=== PATIENT | female | born 1985 ===

== ENCOUNTER 2016-11-07 20:56 | Emergency (ER) | payer OTHER ==
[2016-11-07 21:08] VITALS: BP 118/65; PULSE 79; RESP 18; TEMP 98; O2SAT 98
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
--- NOTE | 2016-11-08 12:56 | US ---
PROCEDURE: ultrasound HISTORY: 12 weeks r/o demise COMPARISON: None available. TECHNIQUE: None FINDINGS: LMP: 08/14/2016 Prior examinations from the current : None TECHNIQUE: Real-time 2D imaging, duplex and color Doppler. FINDINGS: Cardiac activity: Present Rate: 02/12/1928 BPM Measurements: [place] rump length: 5.35 cm Gestational age based on CRL 12 weeks Gestational age based on gestational sac measurement 11 weeks 3 days Gestational age derived from LMP: 12 weeks 1 day ERINN based on LMP: 05/21/2017 ERINN based on biometry: 05/24/2017 Gestational concordance documented Yolk sac identified Uterus: Unremarkable. No Cervical abnormalities: Negative examination for cervical dilatation or effacement. Closed cervix measures 4.18 cm Subchorionic hemorrhage: None ADNEXA: Right: 1.5 x 2.7 cm. Normal Doppler arterial waveform documented. Left: 1.1 x 2.3 cm. Normal Doppler arterial waveform documented Fluid in the cul-de-sac: None. IMPRESSION: 11 weeks 5 days live intrauterine gestation. Gestational concordance documented.
== END 2016-11-07 23:34 | disposition home or self-care (01) ==
LOC: H.ER 20:56
DX: M54.5 Low back pain (principal); S16.1XXA Strain of muscle, fascia and tendon at neck level, initial encounter; V43.52XA Car driver injured in collision with other type car in traffic accident, initial encounter; Y92.410 Unspecified street and highway as the place of occurrence of the external cause; Z33.1 Pregnant state, incidental

== ENCOUNTER → 2017-02-23 | Emergency (ER) | payer OTHER ==
--- NOTE | 2017-02-23 16:17 | OBHP ---
Datetime: 02/23/2017 16:12 IP Adm Impression: , intrauterine ; No Active Labor IP Admit Plan: Discharge home Admit Comment, IP Provider: The patient is a 31-year-old 2 para 1 last, last menstrual perio d 08/14/2016 estimated due date 05/21/2017 and estimated gestational age 27 weeks patient presents to labor and delivery complaining of decreased movement for the last 24 hours. Patient denies any vaginal bleeding any complications. Past medical history none Past surgical history none No known drug allergies Social history negative Review of systems patient denies headache chest pain shortness of breath palpitations nausea vomit ing diarrhea heat or cold intolerances bruisability Vital signs stable afebrile Physical exam see notes Intrauterine at 1227 weeks heart rate monitoring appropriate Patient reports movement when she was placed on the monitor NST Discharge home Abdomen - PN: Normal FHR - Baseline A Provider: 145 Gestation - Est Wks by US: 27.0 EGA AdmitDate IP: 27.4 IP Chief Complaint: Other NICHD Variability Prov Fetus A: Moderate 6-25bpm NICHD Accel Fetus A IP Provider: 10X10 FHR Category Provider Fetus A: Category I NICHD Decel Fetus A IP Provider: None
== END | disposition home or self-care (01) ==
LOC: H.EROB2 13:23
DX: O36.8121 Decreased fetal movements, second trimester, fetus 1 (principal); Z3A.27 27 weeks gestation of pregnancy

== ENCOUNTER 2017-04-15 12:07 | Emergency (ER) | payer OTHER ==
[2017-04-15 12:20] VITALS: BMI 34.0
[2017-04-15 13:35] LABS: SQUAMOUS EPITHIAL 18 /hpf (0-5); URINE BACTERIA RARE (<OCC); URINE BILIRUBIN NEGATIVE (NEGATIVE); URINE BLOOD NEGATIVE (NEGATIVE); URINE CLARITY CLOUDY (Clear); URINE COLOR YELLOW (YELLOW); URINE GLUCOSE (UA) NEG (Normal); URINE LEUKOCYTE ESTERASE LARGE Leu/uL (Negative); URINE PROTEIN NEGATIVE (NEGATIVE); URINE UROBILINOGEN 0.2-1.0 mg/dL (0.2-1.0)
[2017-04-15 15:02] LABS: SPECIMEN COMMENT SL.CLOUDY
[2017-04-15 19:37] VITALS: BP 114/61; PULSE 87; RESP 20; TEMP 98.2
--- NOTE | 2017-04-16 08:40 | OBHP ---
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 No SROM. No VB. +FM PMH: denies PSH: denies NKA POBGYNH: 40w no complicatoins hx HSV PNC: Dr Atkins - chart rev'd A: IUP at 34w threatened PTL PLAN: check UA/FFN (Annotations: Data stored by CPN on behalf of user) Pelvic Type - PN: Adequate Extremities - PN: Normal Abdomen - PN: Normal Back - PN: Normal Breast - PN: Not Done Lungs - PN: Normal Heart - PN: Normal Thyroid - PN: Not Done Neurologic - PN: Normal HEENT - PN: Normal General - PN: Normal FHR - Baseline A Provider: 135 Membranes, Provider: Intact Contraction Comments Provider: occ Pool Provider: Negative IP Hx Assessment: The History has been Reviewed and is Current EGA AdmitDate IP: 34.6 Vital Signs Provider: Reviewed; Within Normal Limits IP Chief Complaint: Uterine contractions NICHD Variability Prov Fetus A: Moderate 6-25bpm NICHD Accel Fetus A IP Provider: 15X15 FHR Category Provider Fetus A: Category I NICHD Decel Fetus A IP Provider: None Dilatation, Provider: 0 Genitourinary Exam: Normal DTRs - PN: Normal
--- NOTE | 2017-04-16 08:42 | OBDCSUM ---
Datetime: 04/15/2017 15:20 Discharge Instructions, Provider: Routine instructions given Disch Activity Restrictions: No sexual activity; Nothing in vagina - [place], tampons, douche Discharge Comment, Provider: Cephalexin 500mg po TID for 7d; urine culture done...Dr Gorman saw p t prior to discharge Discharge Diagnosis Prov Other: UTI 34 weeks preg
== END 2017-04-15 15:32 | disposition home or self-care (01) ==
LOC: H.EROB2 12:07 → H.L&D 12:31 → H.EROB2 15:32
DX: O47.9 False labor, unspecified (principal); Z3A.34 34 weeks gestation of pregnancy; O26.93 Pregnancy related conditions, unspecified, third trimester; R42 Dizziness and giddiness; R10.2 Pelvic and perineal pain

== ENCOUNTER 2017-05-11 20:42 | Emergency (ER) | payer OTHER ==
--- NOTE | 2017-05-11 22:07 | OBHP ---
Datetime: 05/11/2017 21:50 IP Adm Impression: Term, intrauterine IP Admit Plan: Observation/Evaluation; Discharge home Admit Comment, IP Provider: 32 yo at 38+4 wks reports irregular ctxns that started this afte rnoon, passed mucus plug this evening, reports decreased FM since 3pm, reports that she is feeling fe danny movement now. Pt denies VB, LOF. Pt receives her care w/ Dr. Gorman. 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 Pt discharged home w/ labor precautions. Pt has an appoint tomorrow am w/ Dr. Gorman. FHR - Baseline A Provider: 140's Membranes, Provider: Intact Contraction Comments Provider: q2-4 EGA AdmitDate IP: 38.4 Vital Signs Provider: Reviewed; Within Normal Limits IP Chief Complaint: Uterine contractions; Decreased movement NICHD Variability Prov Fetus A: Moderate 6-25bpm NICHD Accel Fetus A IP Provider: 15X15 NICHD Decel Fetus A IP Provider: None Dilatation, Provider: FT Effacement, Provider: 50 Station, Provider: -3
--- NOTE | 2017-05-11 22:07 | OBDCSUM ---
Datetime: 05/11/2017 21:44 Discharged to, Provider: Home Follow up at, Provider: Disch Instr Activity: Normal activity Disch Instr Diet: Regular Discharge Instructions, Provider: Routine instructions given Discharge Diagnosis, Provider: False Labor - Undelivered Discharge Time: 05/11/2017 21:44 Follow up in weeks, Provider: 05/12/17 Disch Referrals: None
[2017-05-12 02:14] VITALS: BP 118/60; PULSE 91; RESP 14; TEMP 98.3
== END 2017-05-11 21:44 | disposition home or self-care (01) ==
LOC: H.EROB2 20:42
DX: O36.8130 Decreased fetal movements, third trimester, not applicable or unspecified (principal); Z3A.38 38 weeks gestation of pregnancy; O26.93 Pregnancy related conditions, unspecified, third trimester; R10.2 Pelvic and perineal pain

== ENCOUNTER 2017-05-17 09:27 | Inpatient (IN) | payer OTHER ==
[2017-05-17] MEDS: Lactated Ringer's 1,000 ML IV SCH ×3 (10:00→20:00)
[2017-05-17 10:46] VITALS: BMI 35.9
[2017-05-17] MEDS ORDERED: Oxytocin 30 units/LR 500ML 30 U/500 ML BAG IV ONE (11:06)
[2017-05-17 12:21] LABS: BASO % 0.3 % (0.0-2.0); EOS # 0.1 K/uL (0.0-0.7); EOS % 0.7 % (0.0-4.0); HEMOGLOBIN 10.8 g/dL (12.0-16.0); LYMPH # 2.1 K/uL (1.0-4.3); MEAN CELL VOLUME 84.7 fl (81.0-99.0); MEAN CORPUSCULAR HEMOGLOBIN 28.1 pg (27.0-31.0); MEAN CORPUSCULAR HGB CONC 33.2 g/dL (33.0-37.0); MONO # 0.9 K/uL (0.0-0.8); NEUT # 7.8 K/uL (1.8-7.0); NRBC % 0.1 % (0.0-0.0); RBC 3.84 Mil/uL (3.80-5.20); RED CELL DISTRIBUTION WIDTH 14.2 % (11.5-14.5); WHITE BLOOD COUNT 10.9 K/uL (4.8-10.8)
[2017-05-17] MEDS ORDERED: Fentanyl/Bupivacaine HCl 250 ML EPI ONE (16:47)
[2017-05-17] MEDS ORDERED: Bupivacaine HCl 0.25% PF (10 ml) Inj ONE (16:49)
--- NOTE | 2017-05-17 17:02 | OBADHP ---
Datetime: 05/17/2017 16:38 Admit Comment, IP Provider: term uneventful course admitted withsrom for delivery Pelvic Type - PN: Adequate Extremities - PN: Normal Abdomen - PN: Normal Back - PN: Normal Breast - PN: Normal Lungs - PN: Normal Heart - PN: Normal Thyroid - PN: Normal Neurologic - PN: Normal HEENT - PN: Normal General - PN: Normal Presentation-Admit: iup at term FHR - Baseline A Provider: 130 Gestation - Est Wks by US: 39+ Pool Provider: Positive IP Chief Complaint: Uterine contractions; Suspected ruptured membranes NICHD Variability Prov Fetus A: Moderate 6-25bpm NICHD Accel Fetus A IP Provider: 10X10 FHR Category Provider Fetus A: Category I NICHD Decel Fetus A IP Provider: None Dilatation, Provider: 2 Effacement, Provider: 75 Station, Provider: -2 Genitourinary Exam: Normal DTRs - PN: Normal EGA AdmitDate IP: 39.3 IP Adm Impression: Term, intrauterine IP Admit Plan: Admit to unit; Initiate labor protocol Datetime: 05/11/2017 21:50 Membranes, Provider: Intact Contraction Comments Provider: q2-4 Vital Signs Provider: Reviewed; Within Normal Limits Datetime: 04/15/2017 13:01 IP Hx Assessment: The History has been Reviewed and is Current
[2017-05-18] MEDS: Lactated Ringer's 1,000 ML IV SCH (04:00)
[2017-05-18] MEDS ORDERED: cefOXitin 2 GM in Sodium Chloride 0.9% 100 ML IVPB STA (06:16)
[2017-05-18] MEDS ORDERED: Oxytocin 30 units/LR 500ML 30 U/500 ML BAG IV ONE (06:26)
[2017-05-18] MEDS ORDERED: Morphine 5 mg/10 ml preservative-free Inj(Duramorph) ONE (07:24)
[2017-05-18] MEDS ORDERED: Oxycodone/Acetaminophen 5/325 mg Tab PO PRN ×4 (08:27→15:13)
[2017-05-18] MEDS ORDERED: Bisacodyl 5mg EC Tab PO PRN ×2 (08:27→15:13)
[2017-05-18] MEDS ORDERED: DiphenhydrAMINE 50 mg/ml Inj IVP PRN ×2 (08:34→15:13)
--- NOTE | 2017-05-18 08:34 | OBDS ---
DELIVERY PERSONNEL Delivery Doctor: Rizwan Gorman MD Scrub Nurse: Arianna Munoz OBT Photographer Model: Poppy Lynn RN Anesthesiologist: MD shila MATERNAL INFORMATION Delivery Anesthesia: Spinal Medications in Delivery: pitocin Estimated Blood Loss (ml): 800 Placenta Cultured: No Maternal Complications: None RN Comments: Atraumatic primary delivery of viable babygirl with Lusty Cry skin to skin in itiated within [address] Brock assigned 9/9 APGARs. Patient tolerated delivery well. Patient an d infant recovering well. Provider Comments: delivery of live baby girl 9/9 clear fluid cord with 3 vessels placenta ant erior tubes and ovaries wnl ebl 800ml LABOR SUMMARY EDC: 05/21/2017 00:00 No. Babies in Womb: 1 Attempted: No Labor Anesthesia: Epidural LABOR INFORMATION Onset of Labor: 05/17/2017 19:00 Oxytocin: Induction Group B Beta Strep: Negative Antibiotics # of Doses: 1 Antibiotics Time of Last Dose: 6:55 Steroids Given: None Reason Steroids Not Administered: Not Applicable Other Reason Not Administered: Not required MEMBRANES Membranes Rupture Method: Spontaneous Rupture of Membranes: 05/17/2017 07:30 Length of Rupture (hrs): 24.02 Amniotic Fluid Color: Clear Amniotic Fluid Amount: Moderate Amniotic Fluid Odor: Normal STAGES OF LABOR Stage 3 hrs: 0 Stage 3 min: 1 Total Time in Labor hrs: 12 Total Time in Labor min: 32 CSECTION DELIVERY Primary Indication: Failure of Descent CSection Urgency: Emergency CSection Incidence: Primary Labor: N/A Elective: N/A CSection Incision: Lower Uterine Transverse BABY A INFORMATION Infant Delivery Date/Time: 05/18/2017 07:31 Method of Delivery: Born in Route : No : N/A Forceps: N/A Vacuum Extraction: N/A Shoulder Dystocia : No SHOULDER DYSTOCIA BABY A Delivery Date/Time: 05/18/2017 07:31 PRESENTATION/POSITION BABY A Presentation: Cephalic Cephalic Presentation: Vertex Vertex Position: Left Occipital Anterior Breech Presentation: N/A PLACENTA INFORMATION BABY A Placenta Delivery Time : 05/18/2017 07:32 Placenta Method of Delivery: Manual Removal Placenta Status: Delivered SCORES BABY A Heart Rate 1 min: >100 bpm Resp Effort 1 min: Good Cry Reflex Irritability 1 min: Cough or Sneeze or Pulls Away Muscle Tone 1 min: Active Motion Color 1 min: Body [place], Extremities Blue Resuscitation Effort 1 min: N/A SCORE 1 MIN: 9 Heart Rate 5 min: >100 bpm Resp Effort 5 min: Good Cry Reflex Irritability 5 min: Cough or Sneeze or Pulls Away Muscle Tone 5 min: Active Motion Color 5 min: Body [place], Extremities Blue Resuscitation Effort 5 min: N/A SCORE 5 MIN: 9 INFANT INFORMATION BABY A Gestational Age at Delivery: 39.0 Gestational Status: Term Infant Outcome : Liveborn Infant Condition : Stable Sex: Female IDENTIFICATION/MEDS BABY A ID Band Number: [id number] ID Band Location: Right Leg; Right Arm WEIGHT/LENGTH BABY A Infant Birthweight (gms): 3350 Infant Weight (lb): 7 Weight (oz): 6 CORD INFORMATION BABY A No. Cord Vessels: 3 Nuchal Cord : N/A Cord Blood Taken: N/A Suction: Mouth; Nose ASSESSMENT BABY A Infant Complications: None Physical Findings at Delivery: Within Normal Limits Respirations: Appears Normal Customer Counter Associate/ALS Called : No Infant Care By: Dr Peralta Transferred To: Remains with Mother
--- NOTE | 2017-05-18 08:34 | OBPPN ---
Datetime: 05/18/2017 08:33 PP Pain Prov: Within normal limits PP Nausea Prov: Denies PP Flatus Prov: Yes PP BM Prov: No PP Breasts Prov: Normal PP Heart Prov: Normal PP Lungs Prov: Normal PP Abdomen/Uterus Prov: Normal PP Lochia Prov: Normal PP Vulva/Perineum Prov: Normal PP CVA Tenderness Prov: Normal PP Extremities Prov: Normal PP Progress Prov: Normal PP Impression Prov: Normal progression PP Plan Prov: Continue present management PP Progress Note Prov: stable ppd1 continue present care IP PP Procedures: None
[2017-05-19 07:17] LABS: HEMOGLOBIN 8.8 g/dL (12.0-16.0); MEAN CELL VOLUME 84.2 fl (81.0-99.0); MEAN CORPUSCULAR HEMOGLOBIN 28.2 pg (27.0-31.0); MEAN CORPUSCULAR HGB CONC 33.5 g/dL (33.0-37.0); RBC 3.12 Mil/uL (3.80-5.20); RED CELL DISTRIBUTION WIDTH 14.6 % (11.5-14.5); WHITE BLOOD COUNT 12.8 K/uL (4.8-10.8)
--- NOTE | 2017-05-19 09:01 | OBPPN ---
Datetime: 05/19/2017 08:56 PP Pain Prov: Within normal limits PP Nausea Prov: Denies PP Flatus Prov: Yes PP BM Prov: No PP Breasts Prov: Normal PP Heart Prov: Normal PP Lungs Prov: Normal PP Abdomen/Uterus Prov: Normal PP Lochia Prov: Normal PP Vulva/Perineum Prov: Normal PP CVA Tenderness Prov: Normal PP Extremities Prov: Normal PP C/S Incision Prov: Normal PP Progress Prov: Normal PP Impression Prov: Normal progression PP Plan Prov: Continue present management PP Progress Note Prov: stable pod 1 no complaints dressing removed and incision is clean increase di et as tolerated IP PP Procedures: None Vital Signs Provider PP: Reviewed; Within Normal Limits
[2017-05-19] MEDS: Simethicone 80 mg Chewtab PO PRN ×2 (09:41→17:12)
--- NOTE | 2017-05-20 08:50 | OP ---
PROCEDURE DATE: 05/18/2017 PREOPERATIVE DIAGNOSES: Term and arrest of labor. POSTOPERATIVE DIAGNOSES: Term and arrest of labor. SURGEON: Travis Gorman MD GROUP INSURANCE SPECIALIST: Lionel Bonds MD TYPE OF ANESTHESIA: Epidural anesthesia. ANESTHESIA ADMINISTERED BY: Nathaniel Whitley MD DESCRIPTION OF PROCEDURE: With the patient in the supine position under epidural anesthesia, the patient was prepped and draped in the usual sterile manner. Dr. Bonds assisted in preparation of the surgery and after the patient was prepped and draped, a Pfannenstiel incision was made and taken down to the fascia in layers. Fascia was incised and extended bilaterally. The muscle was from the fascia by sharp dissection, afterwards muscle opened in midline. Siria clamps, peritoneum was grasped, incised and extended vertically. Upon entering the abdominopelvic cavity, paracolic gutters were packed with wet laps, pushing the bowel away from the operative field. Following this, a low-transverse incision was made in the uterus after the bladder flap was made and bladder was pushed away from the low-transverse section. A low-transverse incision was then made in the uterus extended bilaterally and curving upwards. Baby was removed without any complication, given to the professional nursing tutor who resuscitated. After this was done, the placenta was removed intact. Uterus was exteriorized and clean and then it was closed with 2 layers using 1 Vicryl running interlocking stitch maintaining hemostasis. Following this, the pelvic cavity was irrigated until clean. Uterus was repositioned. The wet flaps were removed from the paracolic gutters. After this was done, the peritoneum was closed with 1 Vicryl. Muscles were approximated with 1 Vicryl. The fascia was then closed with 1 Vicryl running interlocking stitch, starting at each end and finished in the midline. Dr. Bonds doing his half and I am doing my half. Following this, the subcutaneous layer was closed with 2-0 plain and the skin was closed in a subcuticular manner using 3-0 Prolene. The patient tolerated the procedure well and was in satisfactory condition on the way to recovery room. Dr. Bonds was there from the beginning of the surgery to the last stitch. Estimated blood loss was about 800 mL. Travis MD [facility] # [id number]
[2017-05-20] MEDS: Simethicone 80 mg Chewtab PO PRN ×2 (09:10→17:05)
--- NOTE | 2017-05-20 10:29 | OBPPN ---
Datetime: 05/20/2017 10:24 PP Pain Prov: Within normal limits PP Nausea Prov: Denies PP Flatus Prov: Yes PP BM Prov: Yes PP Breasts Prov: Normal PP Heart Prov: Normal PP Lungs Prov: Normal PP Abdomen/Uterus Prov: Normal PP Lochia Prov: Normal PP Vulva/Perineum Prov: Normal PP CVA Tenderness Prov: Normal PP Extremities Prov: Normal PP C/S Incision Prov: Normal PP Progress Prov: Normal PP Impression Prov: Normal progression PP Plan Prov: Continue present management PP Progress Note Prov: stable pod 2 no complaints today continue present care IP PP Procedures: None Vital Signs Provider PP: Reviewed; Within Normal Limits
--- NOTE | 2017-05-21 10:36 | OBPPN ---
Datetime: 05/21/2017 10:34 PP Pain Prov: Within normal limits PP Nausea Prov: Denies PP Flatus Prov: Yes PP BM Prov: Yes PP Breasts Prov: Normal PP Heart Prov: Normal PP Lungs Prov: Normal PP Abdomen/Uterus Prov: Normal PP Lochia Prov: Normal PP Vulva/Perineum Prov: Normal PP CVA Tenderness Prov: Normal PP Extremities Prov: Normal PP C/S Incision Prov: Normal PP Impression Prov: Normal progression PP Plan Prov: Continue present management PP Progress Note Prov: stable pod3 dc home today rto 1week IP PP Procedures: None Vital Signs Provider PP: Reviewed; Within Normal Limits
--- NOTE | 2017-05-21 10:38 | OBDCSUM ---
Datetime: 05/21/2017 10:36 Discharged to, Provider: Home Follow up at, Provider: Disch Instr Activity: Bedrest; May be up to bathroom; May be up for meals; May Shower Disch Instr Diet: Regular Discharge Instructions, Provider: Routine instructions given Discharge Diagnosis, Provider: Term Delivered Discharge Time: 05/21/2017 10:36 Follow up in weeks, Provider: 1week Disch Referrals: None Disch Activity Restrictions: No exercising; No lifting; No driving; Minimize walking; Minimize stair -climbing; No sexual activity; Nothing in vagina - [place], tampons, douche Discharge Comment, Provider: dc home today rto 1week call office if any problems Contraception after Delivery: Undecided Datetime: 05/11/2017 21:44 Discharge Time: 05/21/2017 21:44 Follow up in weeks, Provider: in 1 week
[2017-05-22 18:35] VITALS: BP 148/90; PULSE 95; RESP 20; TEMP 97.6; O2SAT 98
== END 2017-05-21 12:15 | disposition home or self-care (01) | DRG 766 ==
LOC: H.EROB2 09:27 → H.L&D 10:11 → H.EROB2 10:47 → H.L&D 14:27 → H.OB/GYN 05-18 11:35
PROVIDERS: ADMIT Specialist; ATTEND Specialist
PROC: 10D00Z1 Extraction of Products of Conception, Low, Open Approach (ICD-10-PCS; principal; 2017-05-17)
PROC: 4A1HXCZ Monitoring of Products of Conception, Cardiac Rate, External Approach (ICD-10-PCS; 2017-05-17)
DX: O32.4XX0 Maternal care for high head at term, not applicable or unspecified (principal); Z37.0 Single live birth; Z3A.39 39 weeks gestation of pregnancy